=== PATIENT | female | born 1980 | race Caucasian/White ===

== ENCOUNTER 2017-12-24 23:54 | Emergency (ER) | payer OTHER ==
[~2017-12-24] VITALS: Ht 157.5 cm; Wt 56.7 kg
[2017-12-25] MEDS ORDERED: AUGMENTIN 875-1 EAC1 ORAL (00:09)
[2017-12-25] MEDS ORDERED: Tetanus/Diptheria/Pertussis Vaccine 0.5ml Syr IM ONE (00:15)
--- NOTE | 2017-12-25 00:16 | Emergency Room Report ---
History of Present Illness General Chief Complaint: Animal Bite Source: Patient Present Illness HPI 37-year-old female, presenting with dogbite left leg, states it happened in the afternoon, a dog was running around, no longer in site, however the dog had a collar. It was a small dog. Patient states that it bit through her jeans, there is very minimal bleeding. No other complaints. Tetanus is not up-to-date Allergies: Coded Allergies: No Known Allergies (Unverified , 12/24/17) Patient History Past Medical History: see triage record Past Surgical History: none Pertinent Family History: none Last Menstrual Period: 12/05/17 Now: No : 1 Para: 2 Reviewed Nursing Documentation: PMH: Agreed; PSxH: Agreed Nursing Documentation-PMH Past Medical History: No Stated History Review of Systems All Other Systems: negative except mentioned in HPI Physical Exam Vital Signs Date Time Temp Pulse Resp B/P (MAP) Pulse Ox O2 Delivery O2 Flow Rate FiO2 12/24/17 23:56 98.3 79 14 136/92 100 Room Air 98.2 Sp02 EP Interpretation: reviewed, normal General Appearance: normal inspection, well appearing, no apparent distress, alert, GCS 15, non-toxic Head: normocephalic, atraumatic Eyes: bilateral eye normal inspection, bilateral eye PERRL, bilateral eye EOMI ENT: normal ENT inspection, normal pharynx, normal voice, moist mucus membranes Neck: normal inspection, full range of motion, supple Respiratory: normal inspection, lungs clear, normal breath sounds, no respiratory distress, no retraction, no wheezing, speaking full sentences, chest symmetrical Cardiovascular #1: normal inspection, regular rate, rhythm, no edema, normal capillary refill Cardiovascular #2: 2+ radial (R), 2+ radial (L) Gastrointestinal: normal inspection, non tender, soft, non-distended, no guarding Musculoskeletal: other - Left leg with dog bite armenta noted, very superficial bite wounds, no active bleeding, no purulent drainage, no surrounding erythema, leg is not tense Neurologic: normal inspection, alert, oriented x3, responsive, motor strength/ tone normal, sensory intact, normal gait, speech normal Psychiatric: normal inspection, judgement/insight normal, memory normal Skin: normal inspection, normal color, no rash, warm/dry, well hydrated, normal turgor Medical Decision Making Diagnostic Impression: Primary Impression: Dog bite of extremity ER Course 37-year-old female with left leg dog bite DDX: Does not appear to be infected Likely domestic dog Plan: Tetanus ER course: Patient has remained stable during ED stay. Wound cleaned, bacitracin applied Disposition: Patient is to be discharged to home. Prescriptions given are Augmentin Patient is instructed to follow up with their primary care doctor within 5 days. Strict return precautions discussed with patient such as fever, chills, worsening/severe pain, rapid spread of rash, purulent drainage, which may indicate severe illness. Patient verbalizes understanding and agrees with plan. Please note that this Emergency Department Report was dictated using [employer] examiner technology software, occasionally this can lead to erroneous entry secondary to interpretation by the dictation equipment Last Vital Signs Date Time Temp Pulse Resp B/P (MAP) Pulse Ox O2 Delivery O2 Flow Rate FiO2 12/24/17 23:56 98.3 79 14 136/92 100 Room Air 98.2 Disposition: HOME, SELF-CARE Condition: Improved Scripts Amoxicillin/Potassium Clav 875-125* (AUGMENTIN 875-125 TABLET*) 1 Each Tablet 1 TAB ORAL TWICE A DAY for 7 Days, #14 TAB Prov: Dann Andrade M.D. 12/25/17 Patient Instructions: Animal Bite Additional Instructions: PLEASE SEE YOUR DOCTOR IN 1 WEEK FOR WOUND RECHECK Dann Andrade M.D. Dec 25, 2017 00:16
[2017-12-25 00:26] VITALS: BP 136/92
[2017-12-25 00:27] VITALS: BP 136/92
== END 2017-12-25 00:27 | disposition home or self-care (01) ==
LOC: EMR 12-25 00:09
DX: S81.852A Open bite, left lower leg, initial encounter (principal); W54.0XXA Bitten by dog, initial encounter; Y92.9 Unspecified place or not applicable; Z23 Encounter for immunization
CPT/HCPCS: 90471; 90715; 99283